=== PATIENT | male | born 1995 | race Caucasian/White ===

== ENCOUNTER 2021-07-09 20:30 | Emergency (ER) | payer SELFPAY ==
[~2021-07-09] VITALS: Ht 167.6 cm; Wt 108.4 kg
[2021-07-09 22:10] VITALS: BP 142/71
[2021-07-09] MEDS ORDERED: methylPREDNISolone SS 125 MG in WATER STERILE 2 ML IM ONE (22:50)
[2021-07-09] MEDS ORDERED: PRED20TA5 PO (23:05)
[2021-07-09] MEDS ORDERED: CEPH-588 PO (23:05)
[2021-07-09] MEDS ORDERED: methylPREDNISolone SS 125 MG/2 ML VIAL ONE (23:06)
[2021-07-09] MEDS ORDERED: WATER STERILE 10 ML MC ONE (23:06)
[2021-07-09 23:59] VITALS: BP 142/71
== END 2021-07-09 23:59 | disposition home or self-care (01) ==
LOC: MED 20:30
DX: L23.9 Allergic contact dermatitis, unspecified cause (principal); R21 Rash and other nonspecific skin eruption; F12.90 Cannabis use, unspecified, uncomplicated; Z79.899 Other long term (current) drug therapy
CPT/HCPCS: 96372; 99283; J2930

== ENCOUNTER 2021-10-30 15:43 | Emergency (ER) | payer SELFPAY ==
[~2021-10-30] VITALS: Ht 177.8 cm; Wt 95.3 kg
[~2021-10-30 15:43] MED LIST: CEPH-588 PO; PRED20TA5 PO
--- NOTE | 2021-10-30 15:43 | NUR ---
IVON ALS TO ER BED 1
[2021-10-30 15:47] VITALS: BP 112/68
--- NOTE | 2021-10-30 15:50 | NUR ---
BIBA FROM HOME FOR ALOC D/T ETOH REPORTED BY FAMILY. PT WAS FOUND OUTSIDE HOME, UNCONSCIOUS WITH SWOLLEN NOSE WITH DRIED BLOOD. UNK TRAUMA. LETHARGIC AND RESPONSIVE WITH PAINFUL STIMULI. TACHY AT 118 ON MONITOR. OTHERWISE VITALS STABLE. PLACED ON 2L NC SATTING 97%. UNK HX, UNK ALLERGY STATUS, ON MONITOR, IV ESTABLISHED ON R AC 20G. BLOOD AND URINE COLLECTED
[2021-10-30] MEDS ORDERED: NACL 0.9% 1,000 ML IV ONE (16:10)
[2021-10-30 16:36] LABS: BASOPHILS % (AUTO) 0.3 % (0.0-2.0); EOSINOPHILS % (AUTO) 0.1 % (0.0-4.0); HEMATOCRIT 42.5 % (36-52); HEMOGLOBIN 13.9 g/dL (12.0-18.0); LYMPHOCYTES # (AUTO) 2.1 K/uL (2.0-11.5); LYMPHOCYTES % (AUTO) 20.9 % (20.5-51.1); MEAN CORPUSCULAR HEMOGLOBIN 30 pg (27-31); MEAN CORPUSCULAR HGB CONC 33 g/dL (33-37); MEAN CORPUSCULAR VOLUME 91.7 fL (80-94); MONOCYTES # (AUTO) 0.5 K/uL (0.8-1.0); MONOCYTES % (AUTO) 4.7 % (1.7-9.3); NEUTROPHILS # (AUTO) 7.4 K/uL (1.8-7.7); PLATELET COUNT (AUTO) 296 K/uL (140-450); RED BLOOD CELL COUNT(AUTO) 4.63 MIL/uL (4.20-6.10); RED CELL DISTRIBUTION WIDTH 14.8 % (11.6-13.7); WHITE BLOOD COUNT (AUTO) 9.9 K/uL (4.8-10.8)
--- NOTE | 2021-10-30 16:55 | NUR ---
PT WENT FOR CT
[2021-10-30] MEDS ORDERED: HALOPERIDOL IM 5 MG/ML VIAL ONE (16:59)
[2021-10-30] MEDS ORDERED: HALOPERIDOL IM 5 MG/ML VIAL IM ONE (17:00)
--- NOTE | 2021-10-30 17:05 | NUR ---
PT BECAME AGITATED AND UNSTABLE FOR CT. ERMD MADE AWARE. ADMINISTERED HALDOL IM PER VERBAL ORDER. PT BECAME CALM. CT COMPLETED WITHOUT COMPLICATION.
--- NOTE | 2021-10-30 17:15 | NUR ---
PT BACK FROM CT
[2021-10-30 17:18] LABS: ALBUMIN 3.8 g/dL (3.4-5.0); ANION GAP 18.7 (8-16); CARBON DIOXIDE 21.9 mmol/L (21-32); CREATININE 0.6 mg/dL (0.6-1.3); POTASSIUM 3.6 mmol/L (3.5-5.1); TOTAL BILIRUBIN 0.3 mg/dL (0.0-1.0)
[2021-10-30 17:43] LABS: BARBITURATE, URINE NEGATIVE ng/ml (NEG <=200); BENZODIAZEPINE, URINE NEGATIVE ng/mL (NEG <=200); CANNABINOID, URINE POSITIVE ng/mL (NEG <=50); COCAINE, URINE NEGATIVE ng/mL (NEG <=300); OPIATE, URINE NEGATIVE ng/mL (NEG <=2000); PHENCYCLIDINE SCREEN,URINE NEGATIVE ng/mL (NEG <=25)
--- NOTE | 2021-10-30 19:20 | NUR ---
recieved transfer report from buddy connor
--- NOTE | 2021-10-30 19:53 | NUR ---
GARRY MOTHER [phone] CALLED REQUESTING UPDATE
[2021-10-30 23:03] VITALS: BP 118/64
--- NOTE | 2021-10-30 23:03 | NUR ---
Patient discharged with v/s stable. Written and verbal after care instructions given and explained. Patient verbalized understanding. Ambulatory with steady gait. All questions addressed prior to discharge. Advised to follow up with PMD. VSS, A/OX4, AMBULATORY, UNLABORED BREATHING, AND CALM DEMEANOR.
--- NOTE | 2021-10-31 10:31 | NUR ---
LATE ENTRY. 0.9%NS BOLUS COMPLETED 10/30/21 AT 2303
== END 2021-10-30 23:03 | disposition home or self-care (01) ==
LOC: MED 15:43
DX: S09.90XA Unspecified injury of head, initial encounter (principal); Z20.822 Contact with and (suspected) exposure to COVID-19; F10.129 Alcohol abuse with intoxication, unspecified; G93.40 Encephalopathy, unspecified; Z79.899 Other long term (current) drug therapy; X58.XXXA Exposure to other specified factors, initial encounter; Y93.89 Activity, other specified; Y92.89 Other specified places as the place of occurrence of the external cause; Y99.8 Other external cause status
CPT/HCPCS: 36415; 70450; 71045; 72125; 80053; 80305; 83690; 85025; 87426; 93005; 96360; 96361; 96372; 99291; G0482; J1630; J7030